=== PATIENT | male | born 1960 | race African-American/Black ===

== ENCOUNTER 2019-08-27 22:27 | Emergency (ER) | payer MEDICAID ==
[~2019-08-27] VITALS: Ht 175.3 cm; Wt 70.5 kg
[2019-08-27 23:27] VITALS: BP 136/80
[2019-08-27] MEDS ORDERED: SULFAMETHOX/TRIMETH DS 800-160 MG/TABLET PO ONE (23:45)
[2019-08-27] MEDS ORDERED: LIDOCAINE 1% 10 ML VIAL INJ ONE (23:45)
[2019-08-28] MEDS ORDERED: OxyCODONE HCL 5 MG IR TABLET PO ONE (00:15)
== END 2019-08-28 00:36 | disposition home or self-care (01) ==
LOC: EMS 22:27
DX: L02.511 Cutaneous abscess of right hand (principal); L03.113 Cellulitis of right upper limb
CPT/HCPCS: 10061; 99284; J3490; 10160

== ENCOUNTER 2019-10-22 23:39 | Emergency (ER) | payer MEDICAID ==
[~2019-10-22] VITALS: Ht 175.3 cm; Wt 86.4 kg
[2019-10-23] VITALS: BP 144/79
[2019-10-23] MEDS ORDERED: LIDOCAINE/PF 1% 2 ML VIAL IM ONE (00:45)
[2019-10-23] MEDS ORDERED: CefTRIAXone SODIUM 1 GM/VIAL IM ONE (00:45)
[2019-10-23] MEDS ORDERED: KETOROLAC TROMETHAMINE 60 MG/2 ML VIAL IM ONE (00:45)
[2019-10-23] MEDS ORDERED: LIDOCAINE 1% 10 ML VIAL INJ ONE (00:45)
[2019-10-23] MEDS ORDERED: POVIDONE-IODINE 10% 15 ML SOLUTION UD TP ONE (01:00)
[2019-10-23] MEDS ORDERED: SULFAMETHOX/TRIMETH DS 800-160 MG/TABLET PO ONE (01:00)
[2019-10-23] MEDS ORDERED: BACITRACIN 0.9 GM PACKET OINTMENT TP ONE (01:15)
== END 2019-10-23 01:52 | disposition home or self-care (01) ==
LOC: EMS 23:39
DX: L02.414 Cutaneous abscess of left upper limb (principal); L03.114 Cellulitis of left upper limb; F17.210 Nicotine dependence, cigarettes, uncomplicated
CPT/HCPCS: 10060; 87070; 96372; 99284; J0696; J1885; J3490 ×2; 87205

== ENCOUNTER 2019-10-24 10:20 | Emergency (ER) | payer SELFPAY ==
[~2019-10-24] VITALS: Ht 175.3 cm; Wt 81.8 kg
[2019-10-24 10:23] VITALS: BP 126/65
[2019-10-24] MEDS ORDERED: ACETAMINOPHEN 500 MG TABLET PO ONE (11:30)
[2019-10-24] MEDS ORDERED: MUPIROCIN CALCIUM 2% 22 GM OINTMENT TP ONE (11:30)
[2019-10-24] MEDS ORDERED: SULFAMETHOX/TRIMETH DS 800-160 MG/TABLET PO ONE (11:30)
[2019-10-24] MEDS ORDERED: CEPHALEXIN MONOHYDRATE 500 MG CAPSULE PO ONE (11:30)
== END 2019-10-24 12:11 | disposition home or self-care (01) ==
LOC: EMS 10:22
DX: L08.9 Local infection of the skin and subcutaneous tissue, unspecified (principal); F17.210 Nicotine dependence, cigarettes, uncomplicated

== ENCOUNTER 2020-01-26 06:24 | Emergency (ER) | payer SELFPAY ==
[~2020-01-26] VITALS: Ht 165.1 cm; Wt 75.0 kg
[2020-01-26 06:55] LABS: GLUCOSE,POINT OF CARE 136 MG/DL (70-110)
[2020-01-26 07:35] LABS: BASOPHILS % (AUTO) 0.5 % (0.0-2.0); EOSINOPHILS % (AUTO) 0.6 % (1.0-6.0); HEMATOCRIT 41.6 % (41-53); HEMOGLOBIN 13.9 g/dL (13.5-17.5); LYMPHOCYTES # (AUTO) 1.1 K/uL (1.0-4.8); LYMPHOCYTES % (AUTO) 10.3 % (22.0-44.0); MEAN CORPUSCULAR HEMOGLOBIN 32.1 pg (26.0-34.0); MEAN CORPUSCULAR HGB CONC 33.4 G/dL (31.0-37.0); MEAN CORPUSCULAR VOLUME 96 fL (80-100); MONOCYTES # (AUTO) 0.6 K/uL (0.1-1.0); MONOCYTES % (AUTO) 6.1 % (2.0-9.0); NEUTROPHILS # (AUTO) 8.5 K/uL (1.8-7.7); NEUTROPHILS % (AUTO) 82.5 % (40.0-70.0); PLATELET COUNT (AUTO) 234 K/uL (150-450); RED BLOOD CELL COUNT(AUTO) 4.32 MIL/uL (4.50-5.90); RED CELL DISTRIBUTION WIDTH 13.1 % (11.5-14.5)
[2020-01-26 07:44] LABS: ANION GAP 7 mmol/L (8-16); CARBON DIOXIDE 27 mmol/L (22-29); CHLORIDE 108 mmol/L (98-107); CREATININE 1.14 mg/dL (0.60-1.30); GLOMERULAR FILTR. RATE CALC > 60 mL/min (>60); GLUCOSE,RANDOM 106 mg/dL (70-110); POTASSIUM 3.7 mmol/L (3.5-5.1); SODIUM SERUM 142 mmol/L (136-145); UREA NITROGEN, BLOOD 13 mg/dL (7-18)
[2020-01-26 07:50] LABS: ALANINE AMINOTRANSFERASE 70 U/L (12-78); ALBUMIN 3.6 g/dL (3.4-5.0); ALKALINE PHOSPHATASE 85 U/L (46-116); ASPARTATE AMINOTRANSFERASE 49 U/L (15-37); BILIRUBIN,TOTAL 0.4 mg/dL (0.1-1.0)
[2020-01-26 09:30] VITALS: BP 123/87
== END 2020-01-26 10:21 | disposition home or self-care (01) ==
LOC: EMS 06:24
DX: F98.9 Unspecified behavioral and emotional disorders with onset usually occurring in childhood and adolescence (principal); F17.210 Nicotine dependence, cigarettes, uncomplicated
CPT/HCPCS: 36415; 80053; 82962; 85025; 99285; G0480

== ENCOUNTER 2022-07-05 11:15 | Emergency (ER) | payer OTHER ==
[~2022-07-05] VITALS: Ht 175.3 cm; Wt 75.0 kg
[2022-07-05] MEDS ORDERED: BACITRACIN 0.9 GM PACKET OINTMENT TP ONE (12:30)
[2022-07-05] MEDS ORDERED: DOXYCYCLINE HYCLATE 100 MG TABLET PO ONE (12:30)
[2022-07-05] MEDS ORDERED: ACETAMINOPHEN 500 MG TABLET PO ONE (12:30)
[2022-07-05] MEDS ORDERED: DOXY-354 PO (12:39)
[2022-07-05] MEDS ORDERED: ACET-3385 PO (12:39)
[2022-07-05 13:00] VITALS: BP 145/82
== END 2022-07-05 13:06 | disposition home or self-care (01) ==
LOC: EMS 11:20
DX: L03.116 Cellulitis of left lower limb (principal); F17.210 Nicotine dependence, cigarettes, uncomplicated; F10.90 Alcohol use, unspecified, uncomplicated
CPT/HCPCS: 99283

== ENCOUNTER 2023-09-20 16:30 | Emergency (ER) | payer OTHER ==
[~2023-09-20] VITALS: Ht 172.7 cm; Wt 59.1 kg
[~2023-09-20 16:30] MED LIST: BACTDSB PO; PANT-31 PO
[2023-09-20 16:32] VITALS: BP 158/83; PULSE 65; RESP 18; TEMP 98.5
== END 2023-09-20 18:10 | disposition home or self-care (01) ==
LOC: EMS 16:30
DX: C18.9 Malignant neoplasm of colon, unspecified (principal); F14.10 Cocaine abuse, uncomplicated; F17.210 Nicotine dependence, cigarettes, uncomplicated; Z59.00 Homelessness unspecified; Z48.02 Encounter for removal of sutures; Z98.890 Other specified postprocedural states
CPT/HCPCS: 99281; Z7502

== ENCOUNTER 2024-02-03 07:48 | Emergency (ER) | payer OTHER ==
[~2024-02-03] VITALS: Ht 175.3 cm; Wt 65.9 kg
[~2024-02-03 07:48] MED LIST changes: +AMOX-457 PO; -BACTDSB PO
[2024-02-03 07:53] VITALS: BP 113/60; PULSE 79; RESP 15; TEMP 98.6
== END 2024-02-03 08:30 | disposition home or self-care (01) ==
LOC: EMS 07:48
DX: K56.609 Unspecified intestinal obstruction, unspecified as to partial versus complete obstruction (principal); F17.210 Nicotine dependence, cigarettes, uncomplicated; F10.90 Alcohol use, unspecified, uncomplicated; Z48.01 Encounter for change or removal of surgical wound dressing; Z98.890 Other specified postprocedural states; Y90.9 Presence of alcohol in blood, level not specified
CPT/HCPCS: 99281; Z7502

== ENCOUNTER 2024-06-01 00:56 | Emergency (ER) | payer OTHER ==
[2024-06-01] MEDS ORDERED: PERM60CR4 TP (02:30)
[2024-06-01] MEDS: PERMETHRIN 5% 60 GM CREAM TP ONE (02:50)
== END 2024-06-01 02:58 | disposition home or self-care (01) ==
LOC: EMS 00:56
DX: B86 Scabies (principal); F17.210 Nicotine dependence, cigarettes, uncomplicated
CPT/HCPCS: 99282; Z7502; Z7610

== ENCOUNTER 2024-06-13 16:23 | Emergency (ER) | payer OTHER ==
[~2024-06-13] VITALS: Ht 175.3 cm; Wt 65.9 kg
[~2024-06-13 16:23] MED LIST changes: -AMOX-457 PO; -PANT-31 PO; +PERM60CR4 TP
[2024-06-13] MEDS ORDERED: PETROLATUM,WHITE 28 GM JELLY TP ONE (16:30)
[2024-06-13 17:24] VITALS: TEMP 98.2
[2024-06-13 17:30] VITALS: BP 136/92; PULSE 86; RESP 16; O2SAT 99
[2024-06-13 18:35] LABS: BASOPHILS % (AUTO) 0.6 % (0.0-2.0); EOSINOPHILS % (AUTO) 6.1 % (1.0-6.0); HEMATOCRIT 39.1 % (41-53); HEMOGLOBIN 12.9 g/dL (13.5-17.5); LYMPHOCYTES # (AUTO) 1.5 K/uL (1.0-4.8); LYMPHOCYTES % (AUTO) 22.3 % (22.0-44.0); MEAN CORPUSCULAR HEMOGLOBIN 32.3 pg (26.0-34.0); MEAN CORPUSCULAR VOLUME 98 fL (80-100); MONOCYTES # (AUTO) 0.5 K/uL (0.1-1.0); MONOCYTES % (AUTO) 7.5 % (2.0-9.0); NEUTROPHILS # (AUTO) 4.3 K/uL (1.8-7.7); NEUTROPHILS % (AUTO) 63.5 % (40.0-70.0); PLATELET COUNT (AUTO) 307 K/uL (150-450); WHITE BLOOD COUNT (AUTO) 6.7 K/uL (4.5-11.0)
[2024-06-13 18:47] LABS: ALCOHOL, BLOOD (SERUM) < 3 mg/dL (0-10)
[2024-06-13 18:49] LABS: ANION GAP 11 mmol/L (8-16); CALCIUM, TOTAL 8.6 mg/dL (8.8-10.5); CARBON DIOXIDE 27 mmol/L (22-29); CHLORIDE 109 mmol/L (98-107); CREATININE 0.88 mg/dL (0.60-1.30); GLOMERULAR FILTR. RATE CALC > 60 mL/min (>60); GLUCOSE,RANDOM 102 mg/dL (70-110); POTASSIUM 4.2 mmol/L (3.5-5.1); SODIUM SERUM 147 mmol/L (136-145); UREA NITROGEN, BLOOD 9 mg/dL (7-18)
[2024-06-13] MEDS ORDERED: HYDR30CR39 TP (21:45)
[2024-06-13] MEDS ORDERED: DIPH50CA37 PO (21:45)
== END 2024-06-13 22:44 | disposition home or self-care (01) ==
LOC: EMS 16:23
DX: F19.10 Other psychoactive substance abuse, uncomplicated (principal); F17.210 Nicotine dependence, cigarettes, uncomplicated; F14.90 Cocaine use, unspecified, uncomplicated; Z59.00 Homelessness unspecified; W57.XXXA Bitten or stung by nonvenomous insect and other nonvenomous arthropods, initial encounter; Y93.89 Activity, other specified; Y92.89 Other specified places as the place of occurrence of the external cause; Y99.8 Other external cause status
CPT/HCPCS: 99283; 80048; 85025; 36415; G0480

== ENCOUNTER 2024-07-01 15:19 | Emergency (ER) | payer OTHER ==
[~2024-07-01] VITALS: Ht 175.3 cm; Wt 79.5 kg
[~2024-07-01 15:19] MED LIST changes: +DIPH50CA37 PO; +HYDR30CR39 TP; -PERM60CR4 TP
[2024-07-01 15:28] VITALS: BP 131/81; PULSE 90; RESP 18; TEMP 97.9; O2SAT 97
== END 2024-07-01 21:21 | disposition home or self-care (01) ==
LOC: EMS 15:19
DX: R52 Pain, unspecified (principal); F17.210 Nicotine dependence, cigarettes, uncomplicated; F14.90 Cocaine use, unspecified, uncomplicated; Z98.890 Other specified postprocedural states
CPT/HCPCS: 99282; 99283